=== PATIENT | female | born 1945 | race Caucasian/White ===

== ENCOUNTER 2016-07-18 17:40 | Observation (INO) ==
[2016-07-18] MEDS ORDERED: Aspirin 81 MG TAB.CHEW PO ONE (17:56)
[2016-07-18] MEDS ORDERED: Nitroglycerin 1 INCH/GM PACKET TP ONE (17:56)
--- NOTE | 2016-07-18 17:56 | Emergency Department Note ---
Disposition Clinical Impression: Chest pain Disposition: Admitted As Inpatient Referrals: Benjamin Cruz Jr, MD [Primary Care Provider] - Forms: ED Satisfaction Letter Chest Pain HPI - General Chief Complaint: ED Chest Pain Stated Complaint: chest pain Time Seen by Provider: 07/18/16 17:50 Source: patient, EMS Mode of arrival: EMS Limitations: no limitations Vital Signs Reviewed: Yes Nursing Notes Reviewed: Yes - History of Present Illness HPI Narrative: Patient reports she is walking in her house when about 4:00 this afternoon she started having a mid chest heaviness. She states this has come and gone and is currently without any pain. She states the discomfort did go to her right arm. She laid down in her bed and the symptoms did not go away and the family called before squad. She does report that she is having some nausea and little dizziness with standing. She denies any diaphoresis or shortness of breath. She denies any trouble quite like this. She relates she was just discharged on Thursday 07/06 after hospitalization for stroke-like symptoms. She states she had EKGs CT head and MRI head and a CT of her chest area and she is told " everything was normal". The squad brought the patient in and she refused any medication or intervention in route. Pt complaint: chest pain Onset (ago): minute(s) (90) Duration: intermittent, now resolved Onset: during exertion (Walking) Pain Location: substernal Severity: moderate Severity scale (1-10): 0 Quality: tightness, heaviness Pain Radiation: RUE Improves with: nothing Worsens with: nothing Associated symptoms: Reports: nausea. Denies: vomiting, diaphoresis, dyspnea, syncope, palpitations, fever, cough, leg swelling Treatments prior to arrival chest pain: none - Related Data Home Medications Medication Instructions Recorded Confirmed Amlodipine [Norvasc] 5 mg PO DAILY 02/07/15 07/18/16 Aspirin 81 mg PO DAILY 02/07/15 07/18/16 Hydrocodone/Acetaminophen [[place] 1 tab PO Q4H PRN 02/07/15 07/18/16 5-325 Tablet] LORazepam [Ativan] 1 mg PO BID PRN 02/07/15 07/18/16 Lisinopril [Zestril] 40 mg PO DAILY 02/07/15 07/18/16 Omeprazole [PriLOSEC] 20 mg PO DAILY 02/07/15 07/18/16 Ascorbate Calcium [Vitamin C] 500 mg PO DAILY 06/15/15 07/18/16 Levothyroxine [Synthroid] 75 mcg PO DAILY 07/05/16 07/18/16 Previous Rx's Medication Instructions Recorded Cholecalciferol (Vitamin D3) 4,000 unit PO DAILY #30 capsule 04/09/16 [Vitamin D3] Citalopram Hydrobromide [Celexa] 40 mg PO DAILY #30 tab 07/02/16 Meclizine [Antivert] 12.5 mg PO TID PRN #30 tablet 07/06/16 Allergies Allergy/AdvReac Type Severity Reaction Status Date / Time No Known Allergies Allergy Verified 07/18/16 17:42 All systems ED: reviewed and negative except as stated. Chest Pain PMH - Past Medical History Medical history: Reports: cancer, hypertension Surgical history: Reports: appendectomy, hysterectomy, orthopedic, other Psychiatric history: Reports: anxiety - Social History Smoking Status: Current every day smoker Alcohol use: Reports: none Drug use: Reports: none Physical Exam - General Limitations: no limitations General appearance: alert, in no apparent distress - Head Head exam: atraumatic, normocephalic, normal inspection - Eye Eye exam: Present: normal appearance, PERRL, EOMI - ENT ENT exam: normal exam, normal oropharynx, mucous membranes moist - Neck Neck exam: Present: normal inspection, full ROM, trachea midline - Chest Chest inspection: Present: normal inspection, symmetric chest wall rise, tenderness - Respiratory Respiratory exam: Present: normal lung sounds bilaterally. Absent: respiratory distress, wheezes, prolonged expiratory phase - Cardiovascular Cardiovascular exam: Present: regular rate, normal rhythm, normal heart sounds. Absent: tachycardia - Abdominal Exam Abdominal exam: Present: soft, Non-Tender, normal bowel sounds. Absent: tenderness, distention, guarding, rebound, rigidity - Extremities Exam Extremities exam: Present: normal inspection, full ROM, normal capillary refill. Absent: tenderness, pedal edema - Expanded Lower Extremity Exam Neurovascular/Tendon exam: Present: normal capillary refill. Absent: motor deficit, sensory deficit, tendon deficit Gait: not tested/not observed - Back Exam Back exam: Present: normal inspection, full ROM. Absent: tenderness - Neurological Exam Neurological exam: Present: alert, oriented X3. Absent: motor sensory deficit - Psychiatric Psychiatric exam: Present: normal affect, normal mood - Skin Skin exam: Present: warm, dry, intact, normal color. Absent: diaphoresis, pallor Course Course Narrative: 1844: All lab, EKG and imaging studies have been discussed with Dr. Aragon. He is agreeable with observation of the patient at this facility. Orders have been obtained for observation and we will be contacting [facility] bed management for placement. Vital Signs Pulse Rate 65 07/18/16 17:47 Respiratory Rate 18 07/18/16 17:47 Blood Pressure 169/88 07/18/16 17:47 O2 Sat by Pulse Oximetry 98 07/18/16 17:47 Temperature 97.8 F 07/18/16 17:48 Pulse Rate 67 07/18/16 18:12 Respiratory Rate 16 07/18/16 18:12 Blood Pressure 155/71 07/18/16 18:12 O2 Sat by Pulse Oximetry 97 07/18/16 18:12 Oxygen Delivery Oxygen Delivery Room Air Chest Pain - Differential Diagnosis Likely: unstable angina pectoris, atypical chest pain, costalchondritis, chest pain - Medical Records Medical records reviewed: Yes I reviewed the patient's medical records. CT/CT angio chest IMPRESSION: No pulmonary emboli are identified. No acute focal infiltrate or pleural effusion. Minimal dependent change and atelectasis in the lungs. Atherosclerotic disease is identified. Small noncalcified pulmonary nodules seen within the lungs as above, stable from 07/30/2011 consistent with benign nodules. No spiculated lung mass or lymphadenopathy in the chest. D/ / 07/05/2016 11:30:31 Meek Gonzalez MD / [facility] MR/MR angio neck wo/w con IMPRESSION: 1. No acute intracranial abnormality. Specifically, no acute infarction. 2. Supratentorial white matter foci of abnormal signal compatible with chronic microvascular ischemic changes. 3. Unremarkable MRA of the neck. 4. Unremarkable MRA of the head. D/ / 07/05/2016 15:00:12 Jose Sinclair MD / [facility] MR/MR head/brain wo con IMPRESSION: 1. No acute intracranial abnormality. Specifically, no acute infarction. 2. Supratentorial white matter foci of abnormal signal compatible with chronic microvascular ischemic changes. 3. Unremarkable MRA of the neck. 4. Unremarkable MRA of the head. D/ / 07/05/2016 15:00:12 Jose Sinclair MD / [place] CT/CT stroke alert head wo con IMPRESSION: No acute intracranial abnormality. Findings were discussed with Manuel Posey at 10:46 am on 07/05/2016. D/ / Jose Sinclair MD / Jose Sinclair MD - Lab Data Lab results reviewed: Yes I reviewed the patient's lab results. Result diagrams: 07/18/16 18:06 07/18/16 18:06 Lab Results 07/18/16 07/18/16 07/18/16 Range/Units 18:06 18:06 18:06 WBC 5.1 (4.3-11.1) K/mcL RBC 5.08 H (3.82-4.97) M/mcL Hgb 14.4 (11.5-15.4) g/dL Hct 42.8 (35.3-44.9) % MCV 84.3 (83.0-100.0) fL MCH 28.3 (28.0-33.3) pg MCHC 33.6 (31.6-35.5) g/dL RDW 13.5 (11.5-14.5) % Plt Count 204 (140-400) K/mcL MPV 10.6 (9.4-12.4) fL Immature Gran % 0.2 (0-4) % Seg Neutrophils % 73.9 % Lymphocytes % 17.0 % Monocytes % 6.1 % Eosinophils % 2.2 % Basophils % 0.6 % Neutrophils # 3.7 (1.6-8.9) K/mcL Lymphocytes # 0.9 (0.6-4.6) K/mcL Monocytes # 0.3 (0.0-1.3) K/mcL Eosinophils # 0.1 (0.0-0.6) K/mcL Basophils # 0.0 (0.0-0.2) K/mcL PT 10.3 (9.4-12.1) Seconds INR 1.0 APTT 31.8 (26.0-36.0) Seconds Sodium (136-145) mEq/L Potassium (3.5-4.5) mEq/L Chloride (98-109) mEq/L Carbon Dioxide (19-29) mEq/L BUN (7-20) mg/dL Creatinine (0.57-1.11) mg/dL Est GFR ( Amer) (> 60) Est GFR (Non-Af Amer) (> 60) BUN/Creatinine Ratio (6-26) Glucose (70-99) mg/dL Calculated Osmolality (280-300) Calcium (8.6-10.8) mg/dL Troponin I (0-0.03) ng/mL B-Natriuretic Peptide 48 (0-100) pg/mL 07/18/16 07/18/16 Range/Units 18:06 18:06 WBC (4.3-11.1) K/mcL RBC (3.82-4.97) M/mcL Hgb (11.5-15.4) g/dL Hct (35.3-44.9) % MCV (83.0-100.0) fL MCH (28.0-33.3) pg MCHC (31.6-35.5) g/dL RDW (11.5-14.5) % Plt Count (140-400) K/mcL MPV (9.4-12.4) fL Immature Gran % (0-4) % Seg Neutrophils % % Lymphocytes % % Monocytes % % Eosinophils % % Basophils % % Neutrophils # (1.6-8.9) K/mcL Lymphocytes # (0.6-4.6) K/mcL Monocytes # (0.0-1.3) K/mcL Eosinophils # (0.0-0.6) K/mcL Basophils # (0.0-0.2) K/mcL PT (9.4-12.1) Seconds INR APTT (26.0-36.0) Seconds Sodium 143 (136-145) mEq/L Potassium 3.7 (3.5-4.5) mEq/L Chloride 107 (98-109) mEq/L Carbon Dioxide 24 (19-29) mEq/L BUN 12 (7-20) mg/dL Creatinine 0.98 (0.57-1.11) mg/dL Est GFR ( Amer) > 60 (> 60) Est GFR (Non-Af Amer) 56 L (> 60) BUN/Creatinine Ratio 12 (6-26) Glucose 93 (70-99) mg/dL Calculated Osmolality 295 (280-300) Calcium 9.1 (8.6-10.8) mg/dL Troponin I 0.00 (0-0.03) ng/mL B-Natriuretic Peptide (0-100) pg/mL - Radiology Data Radiology results reviewed: Yes I reviewed the patient's radiology results. Single view chest x-ray is performed. This does not demonstrate evidence for infiltrate, effusion, pneumothorax, foreign body or heart failure. The cardiac silhouette is normal. I do not see abnormality to the osseous structures of the chest. This is on my interpretation. Impressions Chest X-Ray 07/18/16 17:56 IMPRESSION: No acute cardiopulmonary disease. D/ / Peng Angelo MD / Peng Angelo MD Interpreting Provider: Peng Angelo MD - EKG Data EKG attestation: Yes I reviewed and interpreted this EKG. EKG shows normal: sinus rhythm, axis, intervals, QRS complexes Rate: normal (65) ST segment depression in: v4, v5, v6 Interpretation: unchanged when compared to prior tracing (date) (07/05/2016), nonspecific ST-T wave changes
[2016-07-18 18:17] LABS: Basophils % 0.6 %; Eosinophils # 0.1 K/mcL (0.0-0.6); Eosinophils % 2.2 %; Hematocrit 42.8 % (35.3-44.9); Hemoglobin 14.4 g/dL (11.5-15.4); Immature Granulocytes % 0.2 % (0-4); Lymphocytes # 0.9 K/mcL (0.6-4.6); Mean Corpuscular HGB Conc 33.6 g/dL (31.6-35.5); Mean Corpuscular Hemoglobin 28.3 pg (28.0-33.3); Mean Corpuscular Volume 84.3 fL (83.0-100.0); Mean Platelet Volume 10.6 fL (9.4-12.4); Monocytes # 0.3 K/mcL (0.0-1.3); Monocytes % 6.1 %; Neutrophils # 3.7 K/mcL (1.6-8.9); Platelet Count 204 K/mcL (140-400); Red Blood Count 5.08 M/mcL (3.82-4.97); Red Cell Distribution Width 13.5 % (11.5-14.5); Segmented Neutrophils % 73.9 %
[2016-07-18 18:22] LABS: Prothrombin Time 10.3 Seconds (9.4-12.1)
[2016-07-18 18:25] LABS: Activated Partial Thrombo Time 31.8 Seconds (26.0-36.0)
[2016-07-18 18:32] LABS: BUN/Creatinine Ratio 12 (6-26); Blood Urea Nitrogen 12 mg/dL (7-20); Calcium 9.1 mg/dL (8.6-10.8); Carbon Dioxide 24 mEq/L (19-29); Chloride 107 mEq/L (98-109); Glucose 93 mg/dL (70-99); Osmolality,Calculated 295 (280-300); Potassium 3.7 mEq/L (3.5-4.5); Sodium 143 mEq/L (136-145); eGFR For African Americans > 60 (> 60); eGFR For Non-African Americans 56 (> 60)
[2016-07-18] MEDS ORDERED: *HR* HYDROcodone/Acet 5/325 mg TABLET PO PRN (20:08)
[2016-07-18] MEDS ORDERED: Acetaminophen 325 MG TABLET PO PRN (20:08)
[2016-07-18] MEDS ORDERED: *HR* LORazepam 1 MG TABLET PO PRN (20:08)
[2016-07-18] MEDS ORDERED: Ondansetron 4 MG/2 ML VIAL IVP PRN (20:08)
[2016-07-18] MEDS ORDERED: Naloxone 0.4 MG/ML INJ IVP PRN (20:08)
[2016-07-18] MEDS: 0.9 % Sodium Chloride 1,000 ML IVC SCH (21:10)
[2016-07-19 06:51] VITALS: BP 159/80
[2016-07-19] MEDS ORDERED: Lisinopril 20 MG TABLET PO ONE (06:57)
[2016-07-19] MEDS: 0.9 % Sodium Chloride 1,000 ML IVC SCH (08:48)
[2016-07-19] MEDS ORDERED: Aspirin 81 MG TAB.CHEW PO SCH (09:00)
[2016-07-19] MEDS ORDERED: Lisinopril 20 MG TABLET PO SCH (09:00)
--- NOTE | 2016-07-19 11:02 | Internal Med History&Physical ---
Date of Encounter: 07/19/16 Time of Encounter: 10:25 Assessment and Plan (1) Chest pain Current visit: Yes Status: Acute Doubt myocardial ischemia from history and physical. Repeat cardiac enzymes were ordered through emergency room. Further workup will be done as needed. Suspect costosternal pain is present. Qualifiers: Chest pain type: precordial pain Qualified Code(s): R07.2 - Precordial pain (2) CKD (chronic kidney disease) stage 3, GFR 30-59 ml/min Current visit: Yes Status: Chronic We will let Dr. Cruz address. (3) Anxiety Current visit: No Status: Chronic Continue scheduled Ativan 3 times a day (4) Hypertension Current visit: No Status: Chronic She reports blood pressures at home show systolic readings often 180. I will add Toprol-XL 25 mg daily and she will continue Norvasc and lisinopril. Qualifiers: Hypertension type: essential hypertension Qualified Code(s): I10 - Essential (primary) hypertension Internal Medicine - H&P: HPI Chief complaint: Chest pain Admitted From: Home Plans for Post Hospital Care: Home History of present illness: Ms. Todd is a 71 year old female who came to emergency room stating she had abrupt onset of discomfort while walking at home approximately 4 PM. She describes it as a tightness/pressure sensation. Her daughter insisted she come to the emergency room. She was evaluated and felt deserved admission for ongoing care needs. She states she had a similar episode last week and was hospitalized at [facility]. Her cardiovascular history significant for hypertension but she does not check her blood pressure regularly at home. She reports an occasional sensation of heart racing at times. She had a Regadenoson stress test 11/01/2015 which showed LVEF of 70% with EKG and perfusion imaging negative for ischemia or infarct. She does not get predictable discomfort in her chest on exertion but states she does get it when she is feeling extremely stressed. She denies DVT or pulmonary embolus. She denies heart failure or past [place]. She states she feels back to her baseline now and wishes to be discharged home. Past Med Surg Social Fam HX - Past Medical History Medical history: cancer, hypertension Psychiatric history: anxiety - Past Surgical History Surgical History: appendectomy, hysterectomy, orthopedic, other - Social History Smoking Status: Current every day smoker Smokeless Tobacco Status: No Alcohol use: none Drug use: none - Family History Mother Living Status: Hx Family Cardiac Disorders: Yes ([place]) Father Living Status: Hx Family Cardiac Disorders: Yes ([place]) Internal Medicine - H&P: Meds Amlodipine [Norvasc] 5 mg PO DAILY 02/07/15 [History] Aspirin 81 mg PO DAILY 02/07/15 [History] Hydrocodone/Acetaminophen [[place] 5-325 Tablet] 1 tab PO Q4H PRN 02/07/15 [ History] LORazepam [Ativan] 1 mg PO BID PRN 02/07/15 [History] Lisinopril [Zestril] 40 mg PO DAILY 02/07/15 [History] Omeprazole [PriLOSEC] 20 mg PO DAILY 02/07/15 [History] Ascorbate Calcium [Vitamin C] 500 mg PO DAILY 06/15/15 [History] Cholecalciferol (Vitamin D3) [Vitamin D3] 4,000 unit PO DAILY #30 capsule [Rx] Citalopram Hydrobromide [Celexa] 40 mg PO DAILY #30 tab 07/02/16 [Rx] Levothyroxine [Synthroid] 75 mcg PO DAILY 07/05/16 [History] Meclizine [Antivert] 12.5 mg PO TID PRN #30 tablet 07/06/16 [Rx] Allergies No Known Allergies Allergy (Verified 07/18/16 17:42) All Systems PM: A 10-system review of systems was performed and is negative for pertinent findings except as documented above in the HPI. Review of systems: Gen.: She states her weight has been stable the past few months Cardiovascular: As per history of present illness Respiratory: She has smoked since age 17 up to 2 packs per day. She has a diagnosis of COPD and claims PFTs were done in 2016. She has had negative AMISHA workup in the past. She does not wear home oxygen. GI: She denies disorders of her liver gallbladder or exocrine pancreas : She denies hematuria dysuria or kidney stones. She denies CKD stage III although all her renal indices in available [facility] archives are consistent with CKD stage III. Neurologic: She denies large distribution strokes or seizures. She has had a rare syncopal and occasional [monthly or more frequent] near syncopal episode but has not had workup for these. Endocrine: She has hypothyroidism but denies diabetes or hyperlipidemia Hematology/oncology: She states she was diagnosed with esophageal and laryngeal cancer 2008. She underwent chemotherapy and XRT and states she is now cancer free. She denies other malignancies, anemia or other blood disorders. Psychiatric: She has anxiety and depression. [place] skeletal: She has had ankle surgery and left shoulder surgery in the past. She has chronic low back pain. - Constitutional Vitals: Temp Pulse Resp BP Pulse Ox 97.6 F 51 16 159/80 98 07/19/16 06:51 07/19/16 06:51 07/19/16 06:51 07/19/16 06:51 07/19/16 09:05 Exam: Gen.: She is a well-developed well-nourished female who appears in no severe distress at present time. HEENT: Head is atraumatic and normocephalic. Eyes: EOMI. There is no scleral icterus. Mouth: Mucosa is moist. Neck: Supple and nontender. There is no thyromegaly or adenopathy noted. Heart: Regular without murmurs gallops or ectopics. Lungs: No wheezes or crackles are heard. Chest: She is very tender in her costosternal joints to [id number] palpation. Abdomen: Soft and nontender. No masses or guarding are noted. Exam is limited because she is in the seated position. Extremities: She has DJD changes of her hands. There is no edema of her ankles. Neurologic: Mental status: She is talkative and a good historian. Cranial nerves: Smile is symmetric. Forehead wrinkles bilaterally. Tongue protrudes midline. EOMI. Motor: There is no pronator drift. Cerebellar: Finger to nose is intact bilaterally. Skin: Warm and dry Internal Med - H&P Results - Labs CBC & Chem 7: 07/18/16 18:06 07/18/16 18:06 Labs: Cardiac Enzymes 07/19/16 07/19/16 Range/Units 01:58 08:08 Troponin I 0.01 0.00 (0-0.03) ng/mL - VTE Documentation of Mechanical Device: Graduated compression elastic hosiery
--- NOTE | 2016-07-19 11:23 | Discharge Summary ---
Date of Encounter: 07/19/16 Time of Encounter: 10:25 - Discharge Diagnosis (1) Chest pain Priority: Primary Status: Acute Qualifiers: Chest pain type: precordial pain Qualified Code(s): R07.2 - Precordial pain (2) CKD (chronic kidney disease) stage 3, GFR 30-59 ml/min Priority: Secondary Status: Chronic (3) Anxiety Priority: Secondary Status: Chronic (4) Hypertension Priority: Secondary Status: Chronic Qualifiers: Hypertension type: essential hypertension Qualified Code(s): I10 - Essential (primary) hypertension - Discharge Medications Prescriptions: Metoprolol XL (24 HR) Succ [Toprol XL] 25 mg PO DAILY #30 tab.er.24h Home Medications: Amlodipine [Norvasc] 5 mg PO DAILY 02/07/15 [History] Aspirin 81 mg PO DAILY 02/07/15 [History] Hydrocodone/Acetaminophen [[place] 5-325 Tablet] 1 tab PO Q4H PRN 02/07/15 [ History] LORazepam [Ativan] 1 mg PO BID PRN 02/07/15 [History] Lisinopril [Zestril] 40 mg PO DAILY 02/07/15 [History] Omeprazole [PriLOSEC] 20 mg PO DAILY 02/07/15 [History] Ascorbate Calcium [Vitamin C] 500 mg PO DAILY 06/15/15 [History] Cholecalciferol (Vitamin D3) [Vitamin D3] 4,000 unit PO DAILY #30 capsule [Rx] Citalopram Hydrobromide [Celexa] 40 mg PO DAILY #30 tab 07/02/16 [Rx] Levothyroxine [Synthroid] 75 mcg PO DAILY 07/05/16 [History] Meclizine [Antivert] 12.5 mg PO TID PRN #30 tablet 07/06/16 [Rx] Metoprolol XL (24 HR) Succ [Toprol XL] 25 mg PO DAILY #30 tab.er.24h 07/19/16 [ Rx] Allergies/Adverse Reactions: Allergies No Known Allergies Allergy (Verified 07/18/16 17:42) Date of admission: 07/18/16 19:58 Primary care physician: Benjamin Cruz Jr, MD - Patient Status Disposition: Home, Self-Care Overall status at discharge: patient is progressing back to baseline - Discharge Instructions Follow Up With: Benjamin Cruz Jr, MD [Primary Care Provider] - 1 week - Diet and Activity Activity: resume usual activities as tolerated Diet: advance to your usual diet Hospital course: Ms. Todd is a 71 year old female who came to emergency room stating she had abrupt onset of discomfort while walking at home approximately 4 PM. She describes it as a tightness/pressure sensation. Her daughter insisted she come to the emergency room. She was evaluated and felt deserved admission for ongoing care needs. Initial orders were written by the emergency room physician. I saw her on July 19 and performed a history physical and discharge. Repeat cardiac enzymes showed no evidence of myocardial damage. When I saw her felt the chest pain was unlikely to be of myocardial ischemic origin. There appeared to be a chest wall component to the pain and I recommended she use OTC Aleve at home and discuss with Dr. Cruz at her follow-up visit if the chest discomfort persists. Reviewed the stress test done October 2015 showing no EKG or perfusion evidence of ischemia. Her blood pressure remained above desirable level during hospital stay. She will be given Toprol-XL 25 mg daily at discharge and will continue with Norvasc and lisinopril as at home. I will let Dr. Cruz discuss her chronic kidney disease stage III with her further. She denied knowledge of this. I encouraged her to discontinue smoking. She did not seem interested in doing this. Room air oximetry will be checked prior to discharge on a 6 minute walk. She will follow with Dr. Cruz within 1 week. - Time Spent with Patient Total time spent providing and/or coordinating discharge services: - Constitutional Vitals: Temp Pulse Resp BP Pulse Ox 97.6 F 51 16 159/80 98 07/19/16 06:51 07/19/16 06:51 07/19/16 06:51 07/19/16 06:51 07/19/16 09:05 - VTE Documentation of Mechanical Device: Graduated compression elastic hosiery
--- NOTE | 2016-07-19 16:27 | Electrocardiograph Report ---
[address] [address] Test Date: 2016-07-18 Pat Name: Myla Todd Department: [id number] Room: [facility] Gender: F Aircraft Refueller: : 1945 Requested By: Juan R Morris Order Number: [id number] Reading MD: Capo Rush Measurements Intervals [place] Rate: 65 P: 61 [place]: 134 QRS: 35 QRSD: 93 T: 59 QT: 417 QTc: 429 Interpretive Statements SINUS RHYTHM LATERAL ST DEPRESSION Electronically Signed On 07-19-2016 16:25:05 EST by Capo Rush
== END 2016-07-19 11:44 | disposition home or self-care (01) ==
LOC: INPPIK 17:40 → EMEROOPIK 17:40 → INPPIK 20:03
PROVIDERS: ADMIT Internal Medicine; ATTEND Internal Medicine

== ENCOUNTER 2021-06-25 15:58 | Observation (INO) ==
[2021-06-25] MEDS ORDERED: Isovue-370 500 ML BOTTLE IVP ONE (16:57)
[2021-06-25 17:07] LABS: Basophils % 0.2 %; Eosinophils % 0.2 %; Hematocrit 40.6 % (35.3-44.9); Hemoglobin 13.4 g/dL (11.5-15.4); Immature Granulocytes % 0.4 % (0-4); Lymphocytes # 0.5 K/mcL (0.6-4.6); Mean Corpuscular Hemoglobin 28.9 pg (28.0-33.3); Mean Corpuscular Volume 87.7 fL (83.0-100.0); Mean Platelet Volume 10.6 fL (9.4-12.4); Monocytes # 0.3 K/mcL (0.0-1.3); Monocytes % 5.7 %; Neutrophils # 4.7 K/mcL (1.6-8.9); Platelet Count 285 K/mcL (140-400); Red Blood Count 4.63 M/mcL (3.82-4.97); Red Cell Distribution Width 13.7 % (11.5-14.5); Segmented Neutrophils % 84.5 %; White Blood Count 5.6 K/mcL (4.3-11.1)
[2021-06-25 17:12] LABS: Bilirubin,Urine Negative (Negative); Blood,Urine Negative (Negative); Clarity,Urine Clear (Clear); Color,Urine Yellow (Yellow); Glucose,Urine (UA) Normal (Normal); Ketones,Urine Negative (Negative); Leukocyte Esterase,Urine Negative (Negative); Nitrite,Urine Negative (Negative); PH,Urine 7.5 pH Units (5.0-8.0); Protein,Urine Negative (Neg-Trace); Urobilinogen,Urine Normal (Normal)
[2021-06-25 17:17] LABS: ABG Base Excess 4 mEq/L (-2 to 3); ABG HCO3 29 mEq/L (21-27); ABG Oxygen Saturation 91 % (95-98); ABG PCO2 43 mmHg (35-45); ABG PH 7.43 pH Units (7.32-7.45); ABG PO2 59 mmHg (85-104); ABG TCO2 30 mEq/L (20-26)
[2021-06-25 17:26] LABS: BUN/Creatinine Ratio 10 (6-26); Blood Urea Nitrogen 10 mg/dL (8-23); Calcium 8.7 mg/dL (8.6-10.3); Carbon Dioxide 30 mEq/L (23-29); Chloride 100 mEq/L (98-107); Glucose 121 mg/dL (70-105); Osmolality,Calculated 282 (280-300); Potassium 4.3 mEq/L (3.5-5.1); Sodium 136 mEq/L (136-145); eGFR For African Americans > 60 (> 60); eGFR For Non-African Americans 51 (> 60)
[2021-06-25 17:27] LABS: Troponin I < 0.03 ng/mL (< 0.04)
[2021-06-26] MEDS: Ipratropium/Albuterol Neb 3 ML IH SCH ×3 (00:12→07:59)
[2021-06-26] MEDS ORDERED: Ondansetron 4 MG/2 ML VIAL IVP PRN (10:55)
[2021-06-26] MEDS ORDERED: MOM Conc 10 ML UD.LIQ PO PRN (10:55)
[2021-06-26] MEDS ORDERED: Acetaminophen 325 MG TABLET PO PRN (10:55)
[2021-06-26] MEDS ORDERED: Mag Hydrox/Al Hydrox/Simeth 30 ML UDC PO PRN (10:55)
[2021-06-26] MEDS ORDERED: Melatonin 3 MG TABLET PO PRN (10:55)
[2021-06-26] MEDS ORDERED: Naloxone 0.4 MG/ML INJ IVP PRN (10:55)
[2021-06-26] MEDS ORDERED: *HR* LORazepam 1 MG TABLET PO PRN (10:56)
[2021-06-26] MEDS ORDERED: *HR* HYDROcodone/Acet 5/325 mg TABLET PO PRN (11:38)
[2021-06-26 11:53] LABS: Albumin 3.4 g/dL (3.5-5.7); Albumin/Globulin Ratio 1.4 (1.1-2.2); Bilirubin,Direct 0.1 mg/dL (0.0-0.2); Bilirubin,Indirect 0.4 mg/dL (0.0-1.0); Bilirubin,Total 0.5 mg/dL (0.3-1.0); Globulin 2.4 g/dL (2.4-3.5); Total Protein 5.8 g/dL (6.4-8.9)
[2021-06-26] MEDS: Ipratropium 1 PUFF INHALER IH SCH ×3 (12:00→20:49)
[2021-06-26] MEDS ORDERED: Ipratropium 1 PUFF INHALER IH SCH (12:00)
[2021-06-26] MEDS: amLODIPine 5 MG TABLET PO SCH (12:19)
[2021-06-26] MEDS: Benzonatate 100 MG CAPSULE PO PRN (12:19)
[2021-06-26] MEDS: lisinopriL 20 MG TABLET PO SCH (12:19)
[2021-06-26] MEDS: Azithromycin 500 MG in 0.9 % Sodium Chloride 250 ML IVPB SCH (12:22)
[2021-06-26] MEDS: Nicotine 21 MG PATCH.TD24 TD SCH (14:47)
[2021-06-26] MEDS ORDERED: Remdesivir 200 MG in 0.9 % Sodium Chloride 100 ML IVPB ONE (15:00)
[2021-06-26 16:12] LABS: Acinetobacter baumannii by PCR Not Detected (Not Detect); Candida albicans by PCR Not Detected (Not Detect); Candida glabrata by PCR Not Detected (Not Detect); Candida krusei by PCR Not Detected (Not Detect); Candida parapsilosis by PCR Not Detected (Not Detect); Candida tropicalis by PCR Not Detected (Not Detect); Enterobacter cloacae Cmplx PCR Not Detected (Not Detect); Enterobacteriaceae by PCR Not Detected (Not Detect); Enterococcus by PCR Not Detected (Not Detect); Escherichia coli by PCR Not Detected (Not Detect); Klebsiella oxytoca by PCR Not Detected (Not Detect); Klebsiella pneumoniae by PCR Not Detected (Not Detect); Proteus by PCR Not Detected (Not Detect); Pseudomonas aeruginosa by PCR Not Detected (Not Detect); Serratia marcescens by PCR Not Detected (Not Detect); Staphylococcus aureus by PCR Not Detected (Not Detect); Staphylococcus by PCR DETECTED (Not Detect); Streptococcus agalactiae(B)PCR Not Detected (Not Detect); Streptococcus by PCR Not Detected (Not Detect); Streptococcus pneumoniae PCR Not Detected (Not Detect); Streptococcus pyogenes (A) PCR Not Detected (Not Detect); mecA Methicillin-Resist Gene Not Detected (Not Detect)
[2021-06-26] MEDS: Budesonide/Formoterol 160/4.5 1 PUFF INH IH SCH (20:49)
[2021-06-26] MEDS ORDERED: Budesonide/Formoterol 160/4.5 1 PUFF INH IH SCH (22:00)
[2021-06-27] MEDS: Ipratropium 1 PUFF INHALER IH SCH ×6 (00:55→20:40)
[2021-06-27] MEDS ORDERED: *HR* Enoxaparin 40 MG/0.4 ML SYRINGE SQ SCH (06:00)
[2021-06-27 07:22] LABS: Hematocrit 39.7 % (35.3-44.9); Hemoglobin 12.9 g/dL (11.5-15.4); Mean Corpuscular HGB Conc 32.5 g/dL (31.6-35.5); Mean Corpuscular Hemoglobin 29.4 pg (28.0-33.3); Mean Corpuscular Volume 90.4 fL (83.0-100.0); Mean Platelet Volume 10.6 fL (9.4-12.4); Platelet Count 293 K/mcL (140-400); Red Blood Count 4.39 M/mcL (3.82-4.97); Red Cell Distribution Width 13.9 % (11.5-14.5); White Blood Count 6.5 K/mcL (4.3-11.1)
[2021-06-27 08:27] LABS: Albumin 3.4 g/dL (3.5-5.7); Albumin/Globulin Ratio 1.5 (1.1-2.2); Bilirubin,Direct 0.1 mg/dL (0.0-0.2); Bilirubin,Indirect 0.3 mg/dL (0.0-1.0); Bilirubin,Total 0.4 mg/dL (0.3-1.0); Calcium 8.7 mg/dL (8.6-10.3); Globulin 2.3 g/dL (2.4-3.5); Potassium 3.7 mEq/L (3.5-5.1); Total Protein 5.7 g/dL (6.4-8.9)
[2021-06-27] MEDS: Budesonide/Formoterol 160/4.5 1 PUFF INH IH SCH ×2 (08:52→20:40)
[2021-06-27] MEDS: Nicotine 21 MG PATCH.TD24 TD SCH (09:36)
[2021-06-27] MEDS: lisinopriL 20 MG TABLET PO SCH (09:36)
[2021-06-27] MEDS: amLODIPine 5 MG TABLET PO SCH (09:36)
[2021-06-27] MEDS ORDERED: cefTRIAXone 2,000 MG in 0.9 % Sodium Chloride Mini Bag 100 ML IVP SCH (11:00)
[2021-06-27] MEDS: Azithromycin 500 MG in 0.9 % Sodium Chloride 250 ML IVPB SCH (11:29)
[2021-06-27] MEDS ORDERED: Remdesivir 100 MG in 0.9 % Sodium Chloride 100 ML IVPB SCH (15:00)
[2021-06-27] MEDS: Benzonatate 100 MG CAPSULE PO PRN (21:12)
[2021-06-28] MEDS: Ipratropium 1 PUFF INHALER IH SCH ×3 (00:12→08:36)
[2021-06-28] MEDS ORDERED: *HR* Enoxaparin 30 MG/0.3 ML SYRINGE SQ SCH (06:00)
[2021-06-28 07:41] VITALS: TEMP 98
[2021-06-28 07:54] VITALS: BP 163/76; PULSE 66
[2021-06-28] MEDS: amLODIPine 5 MG TABLET PO SCH (08:06)
[2021-06-28] MEDS: Benzonatate 100 MG CAPSULE PO PRN (08:06)
[2021-06-28] MEDS: Nicotine 21 MG PATCH.TD24 TD SCH (08:06)
[2021-06-28] MEDS: lisinopriL 20 MG TABLET PO SCH (08:06)
[2021-06-28 08:07] LABS: Albumin 3.2 g/dL (3.5-5.7); Albumin/Globulin Ratio 1.5 (1.1-2.2); Bilirubin,Direct 0.1 mg/dL (0.0-0.2); Bilirubin,Indirect 0.3 mg/dL (0.0-1.0); Bilirubin,Total 0.4 mg/dL (0.3-1.0); Globulin 2.1 g/dL (2.4-3.5); Total Protein 5.3 g/dL (6.4-8.9)
[2021-06-28] MEDS: Budesonide/Formoterol 160/4.5 1 PUFF INH IH SCH (08:35)
[2021-06-28] MEDS ORDERED: cefTRIAXone 2,000 MG in 0.9 % Sodium Chloride Mini Bag 100 ML IVPB SCH (09:00)
[2021-06-28 12:41] VITALS: RESP 18
[2021-06-28 12:47] VITALS: O2SAT 99
== END 2021-06-28 10:57 | disposition home or self-care (01) ==
LOC: EMEROOPIK 15:58 → INPPIK 15:58
PROVIDERS: ADMIT Family Medicine; ATTEND Family Medicine